=== PATIENT | male | born 1955 | race Caucasian/White ===

== ENCOUNTER 2017-11-29 10:14 | Emergency (ER) | payer OTHER ==
[2017-11-29] MEDS: MECLIZINE 12.5 MG TAB PO (14:22)
[2017-11-29] MEDS: ONDANSETRON 4 MG INJ IV (14:22)
[2017-11-29 14:24] LABS: ADD MAN DIFF? NO
[2017-11-29 14:29] LABS: BASOPHILS % 0.3 % (0.0-2.0); HEMOGLOBIN 15.8 g/dl (14.0-18.0); LYMPHOCYTES # 0.9 10^3/ul (0.8-2.9); LYMPHOCYTES % 7.5 % (15.0-51.0); MEAN CORPUSCULAR HEMOGLOBIN 29.2 pg (29.0-33.0); MEAN CORPUSCULAR HGB CONC 33.6 g/dl (32.0-37.0); MEAN CORPUSCULAR VOLUME 86.7 fl (82.0-101.0); MONOCYTE # 0.2 10^3/ul (0.3-0.9); MONOCYTES % 1.9 % (0.0-11.0); NEUTROPHIL # 10.5 10^3/ul (1.6-7.5); PLATELET COUNT 233 10^3/UL (140-415); RED BLOOD COUNT 5.42 10^6/ul (4.70-6.10); RED CELL DISTRIBUTION WIDTH 12.5 % (11.5-14.5)
[2017-11-29 14:29] LABS: WHITE BLOOD COUNT 11.6 10^3/ul (4.8-10.8)
[2017-11-29] MEDS: SOD CHLORIDE 0.9% 1,000 ML IV (14:29)
[2017-11-29 14:46] LABS: ANION GAP 10 (8-16); BLOOD UREA NITROGEN 15 mg/dl (7-20); CALCIUM 9.3 mg/dl (8.4-10.2); CARBON DIOXIDE 29 mmol/L (21-31); CHLORIDE 105 mmol/L (97-110); CREATININE 0.61 mg/dl (0.61-1.24); GLUCOSE 121 mg/dl (70-220); POTASSIUM 3.9 mmol/L (3.5-5.1); SODIUM 140 mmol/L (135-144)
[2017-11-29 14:48] LABS: INR 0.89; PARTIAL THROMBOPLASTIN TIME 25.2 Sec (25.0-35.0); PROTIME 12.1 Sec (11.9-14.9); PT RATIO 0.9
[2017-11-29 14:58] LABS: TROPONIN-I 0.041 ng/ml (0.00-0.12)
== END 2017-11-29 16:10 | disposition home or self-care (01) ==
LOC: FTE 10:14
DX: R42 Dizziness and giddiness (principal); R11.0 Nausea; R06.02 Shortness of breath
CPT/HCPCS: 36415; 70450; 71045; 80048; 84484; 85025; 85610; 85730; 93005; 96374; 99285-25

== ENCOUNTER 2018-02-04 08:20 | Emergency (ER) | payer OTHER | END 2018-02-04 09:20 | disposition home or self-care (01) | LOC: FTE 08:20 | DX: M62.838 Other muscle spasm (principal); R05 Cough; R40.2412 Glasgow coma scale score 13-15, at arrival to emergency department | CPT/HCPCS: 99283; Z7502 ==